=== PATIENT | male | born 1990 | race Caucasian/White ===

== ENCOUNTER 2018-08-18 16:48 | Emergency (ER) | payer OTHER ==
[2018-08-18] MEDS: fentaNYL 100 MCG/2 ML SDV IVPUSH ONE ×2 (17:15→17:41)
[2018-08-18 17:33] LABS: CHLORIDE,CL 105 mEq/L (98-106); SODIUM,NA 142 mEq/L (136-145)
--- NOTE | 2018-08-18 17:37 | EDM.PDOC ---
ED HPI GENERAL MEDICAL PROBLEM - General Chief Complaint: Trauma Stated Complaint: fall off ladder approx 15ft Time Seen by Provider: 08/18/18 17:04 Source of Information: Reports: Patient History Limitations: Reports: No Limitations - History of Present Illness INITIAL COMMENTS - FREE TEXT/NARRATIVE: Patient presents to ER per private vehicle after falling about 15 feet off a ladder. States the base of the ladder shifted and he fell, landing on the ladder. States the fall was straight down and he landed on his right foot/ side. He has pain in his right foot and ankle and right wrist. Denies any head trauma, no loss of consciousness, no neck pain. Denies shortness of breath. No nausea or vomiting. GCS 15 on arrival. No PMH. Onset: Today, Sudden Duration: Minutes:, Constant Location: Reports: Upper Extremity, Right, Lower Extremity, Right Quality: Reports: Throbbing Severity: Severe Improves with: Reports: Rest Worsens with: Reports: Movement Context: Reports: Trauma Associated Symptoms: Denies: Confusion, Chest Pain, Cough, Fever/Chills, Loss of Appetite, Nausea/Vomiting, Shortness of Breath, Syncope Right Wrist Pain Score (Numeric/FACES): 7 Right Ankle Pain Score (Numeric/FACES): 6 - Related Data Allergies Allergy/AdvReac Type Severity Reaction Status Date / Time Penicillins Allergy Cannot Verified 08/18/18 17:04 Remember Home Meds: Home Meds . [No Known Home Meds] 08/18/18 [History] Past Medical History - Past Health History Medical/Surgical History: Denies Medical/Surgical History - Past Surgical History HEENT Surgical History: Reports: Oral Surgery Social & Family History - Tobacco Use Smoking Status *Q: Never Smoker Second Hand Smoke Exposure: No - Caffeine Use Caffeine Use: Reports: Coffee - Recreational Drug Use Recreational Drug Use: No Review of Systems - Review of Systems Review Of Systems: See Below Constitutional: Denies: Weakness Eyes: Denies: Blurred Vision, Decreased Acuity, Pain Ears: Denies: Dizziness, Pain, Bloody Discharge Nose: Denies: Bloody Discharge Mouth/Throat: Reports: No Symptoms Respiratory: Denies: Shortness of Breath, Cough Cardiovascular: Denies: Chest Pain, Palpitations, Syncope GI/Abdominal: Denies: Abdominal Pain, Nausea, Vomiting Genitourinary: Reports: No Symptoms Musculoskeletal: Reports: Arm Pain, Foot Pain. Denies: Neck Pain, Shoulder Pain Skin: Reports: No Symptoms Neurological: Denies: Confusion, Dizziness, Headache, Syncope, Weakness ED EXAM, GENERAL - Physical Exam Exam: See Below Free Text/Narrative:: Primary Survey Patient alert and oriented x3, airway patent and clear, conversive Lung sounds clear. Reg S1S2 No pelvic pain or instability. Abdomen is soft, nontender GCS 15 Exam Limited By: No Limitations General Appearance: Alert, WD/WN, Moderate Distress Eye Exam: Bilateral Eye: EOMI, PERRL Ears: Normal External Exam, Normal TMs Nose: Normal Inspection, Normal Mucosa, No Blood Throat/Mouth: Normal Inspection, Normal Oropharynx Head: Normocephalic Neck: Normal Inspection, Supple, Non-Tender Respiratory/Chest: No Respiratory Distress, Lungs Clear, Normal Breath Sounds Cardiovascular: Regular Rate, Rhythm GI/Abdominal: Normal Bowel Sounds, Soft, Non-Tender Back Exam: Normal Inspection, Full Range of Motion. No: Vertebral Tenderness Extremities: Limited Range of Motion (obvious right wrist deformity, tender, limited range of motion. Has obvious swelling to right medial arch. Very tender. Pain with range of motion of his foot/ankle.) Neurological: Alert, Oriented, CN II-XII Intact, Normal Cognition, No Motor/ Sensory Deficits Psychiatric: Normal Affect, Normal Mood Skin Exam: Warm, Dry Course - Vital Signs Last Recorded V/S: Last Vital Signs Temp 98 F 08/18/18 16:53 Pulse 76 08/18/18 16:53 Resp 20 08/18/18 16:53 BP 156/95 H 08/18/18 16:53 Pulse Ox 95 08/18/18 16:53 - Orders/Labs/Meds Orders: Active Orders 24 hr Category Date Time Status Ankle 2V Rt [CR] Stat Exams 08/18/18 16:59 Taken Chest 1V Frontal [CR] Stat Exams 08/18/18 16:59 Taken Foot 2V Rt [CR] Stat Exams 08/18/18 17:10 Taken Pelvis 1V or 2V [CR] Stat Exams 08/18/18 16:59 Taken Wrist 2V Rt [CR] Stat Exams 08/18/18 16:59 Taken UA W/KIM RFLX IF INDICATED [URIN] Stat Lab 08/18/18 17:08 Ordered Labs: Laboratory Tests 08/18/18 08/18/18 08/18/18 Range/Units 17:15 17:15 17:15 WBC 13.3 H (5.0-10.0) 10^3/uL RBC 5.25 (4.50-6.00) 10^6/uL Hgb 16.1 (14.0-18.0) g/dL Hct 46.9 (40.0-54.0) % MCV 89.3 (82.0-94.0) fL MCH 30.7 (27.0-32.0) pg MCHC 34.3 (33.0-38.0) g/dL RDW Coeff of Chaya 12.2 (11.0-15.0) % Plt Count 225 (150-400) 10^3/uL Neut % (Auto) 49.8 (35-85) % Lymph % (Auto) 41.4 (10-55) % [place] % (Auto) 7.1 (0-16) % Eos % (Auto) 1.3 (0-5) % Baso % (Auto) 0.4 (0-3) % Neut # (Auto) 6.65 (1.80-7.00) 10^3/uL Lymph # (Auto) 5.52 H (1.00-4.80) 10^3/uL [place] # (Auto) 0.94 H (0.00-0.80) 10^3/uL Eos # (Auto) 0.17 (0.00-0.45) 10^3/uL Baso # (Auto) 0.05 10^3/uL PT 10.7 (9.7-12.3) SEC INR 1.04 (0.92-1.18) Sodium 142 (136-145) mEq/L Potassium 3.9 (3.5-5.0) mEq/L Chloride 105 (98-106) mEq/L Carbon Dioxide 27 (21-32) mmol/L BUN 18 (7-18) mg/dL Creatinine 1.3 (0.7-1.3) mg/dL Est Cr Clr Drug Dosing 97.31 mL/min Estimated GFR (MDRD) > 60 (>=60) mL/min Glucose 137 H (75-99) mg/dL Calcium 8.9 (8.4-10.1) mg/dL Total Bilirubin 0.3 (0.0-1.0) mg/dL AST 25 (15-37) U/L ALT 44 (12-78) U/L Alkaline Phosphatase 77 (46-116) U/L Total Protein 7.9 (6.4-8.2) g/dL Albumin 4.3 (3.4-5.0) g/dL Meds: Medications Discontinued Medications Generic Name Dose Route Start Last Admin Trade Name Antonio PRN Reason Stop Dose Admin Fentanyl 25 mcg 08/18/18 17:11 08/18/18 17:15 Sublimaze IVPUSH 08/18/18 17:12 25 mcg ONETIME ONE Administration Fentanyl 25 mcg 08/18/18 17:41 08/18/18 17:41 Sublimaze IVPUSH 08/18/18 17:42 25 mcg ONETIME ONE Administration Oxycodone/Acetaminophen 3 packet 08/18/18 17:49 Take Home: Acetaminophen/Oxycodon, 2 Tab Pack PO 08/18/18 17:50 ONETIME ONE - Re-Assessments/Exams Free Text/Narrative Re-Assessment/Exam: 08/18/18 17:59 Patient placed in a sugar tong splint after review of xrays. Has comminuted distal radial fracture. Cam boot applied to right foot. Radiologist did not note any fractures or dislocations of right foot or ankle. Fentanyl given x2 for pain without much overall relief. Dilaudid given. Started on Percocet. GCS remains 15. Did consult with Dr. Gonzalez, orthopedics [facility] for [facility]. Advised to elevate and ice tonight, will see him in am between 9 and 10 [facility] [place]. Co-worker and fiance also informed of instructions. 08/18/18 18:01 Departure - Departure Time of Disposition: 17:49 Disposition: Home, Self-Care 01 Condition: Fair Clinical Impression: Distal radius fracture, right, Right ankle sprain - Discharge Information *PRESCRIPTION DRUG MONITORING PROGRAM REVIEWED*: No *COPY OF PRESCRIPTION DRUG MONITORING REPORT IN PATIENT YASIR: No Forms: ED Department Discharge Additional Instructions: 1. Elevate arm and leg as much as possible tonight to reduce swelling. 2. Unwrap jai bandage and loosen as needed if swelling increases 3. Ice wrist and ankle every 2 hours 4. Weight bear as tolerated to right leg 5. Follow up tomorrow am between 9 and [address] [facility] with [address]. Gonzalez 6. Percocet 1-2 tabs every 6 hours as needed for pain - My Orders Last 24 Hours: My Active Orders 08/18/18 16:59 Ankle 2V Rt [CR] Stat Chest 1V Frontal [CR] Stat Pelvis 1V or 2V [CR] Stat Wrist 2V Rt [CR] Stat 08/18/18 17:08 UA W/KIM RFLX IF INDICATED [URIN] Stat 08/18/18 17:10 Foot 2V Rt [CR] Stat - Assessment/Plan Last 24 Hours: My Active Orders 08/18/18 16:59 Ankle 2V Rt [CR] Stat Chest 1V Frontal [CR] Stat Pelvis 1V or 2V [CR] Stat Wrist 2V Rt [CR] Stat 08/18/18 17:08 UA W/KIM RFLX IF INDICATED [URIN] Stat 08/18/18 17:10 Foot 2V Rt [CR] Stat
[2018-08-18] MEDS: HYDROmorphone 1 MG/ML Syringe IVPUSH ONE (17:48)
[2018-08-18] MEDS: Take Home: Acetaminophen/oxyCODONE 325-5 MG, 2 Tab Pack PO ONE (18:00)
[2018-08-18] MEDS: HYDROmorphone 1 MG/ML Syringe ONE (18:41)
== END 2018-08-18 18:10 | disposition home or self-care (01) ==
LOC: CC.ED 16:48
DX: S52.501A Unspecified fracture of the lower end of right radius, initial encounter for closed fracture (principal); S93.401A Sprain of unspecified ligament of right ankle, initial encounter; Z88.0 Allergy status to penicillin; W11.XXXA Fall on and from ladder, initial encounter
CPT/HCPCS: 29125; 36415; 71045; 72170; 73100; 73600; 73620; 80053; 85025; 85610; 96374; 96375; 99284; A9270; J1170; J3010